=== PATIENT | male | born 1955 | race Caucasian/White ===

== ENCOUNTER → 2019-01-20 | Outpatient (CLI) | payer OTHER ==
--- NOTE | 2019-01-21 03:00 | REP ---
Clinical: Ureteral calculus. Technique: Single supine view of the abdomen and pelvis. Findings: No obvious intrarenal calculi are appreciated. There appears to be a somewhat lamellated 18 mm calculus in the pelvis which may reflect bladder stone. Smaller calcifications in the left jay pelvis ranging between 2 and 5 mm are nonspecific and likely represent phleboliths. Bowel gas pattern is nonspecific. No organomegaly. Skeletal structures intact. Impression: No obvious renal calculi appreciated. Calcifications in the pelvis as noted above. Electronically Signed by Edi Espinoza MD 01/21/2019 02:52 A
== END ==
LOC: M SMT 10:13
PROVIDERS: ATTEND Urology
DX: N20.1 Calculus of ureter (principal)

== ENCOUNTER 2019-03-01 07:12 | Day surgery (SDC) | payer OTHER ==
[~2019-03-01] VITALS: Ht 188 cm; Wt 101.7 kg
[~2019-03-01 07:12] MED LIST: ASPI81TA85 PO; CIPR500T3 PO; DUTA1CAP PO; FLUTISP NARES; LR 1,000 ML IV ONE; METO1TAB7 PO; RANI150T14 PO; TAMS1CAP17 PO
[2019-03-01] MEDS ORDERED: CONRAY-60 60% 50ML VIAL (Q9961) As Ordered ONE (07:17)
[2019-03-01] MEDS ORDERED: dexameTHASONE 4 MG/ML 1ML VIAL (J1100) As Ordered ONE (09:38)
[2019-03-01] MEDS ORDERED: ROCURONIUM BROMIDE 50 MG/5 ML VIAL As Ordered ONE (09:38)
[2019-03-01] MEDS ORDERED: fentaNYL 100 MCG/2 ML INJECTION (J3010) As Ordered ONE ×2 (09:38→10:05)
[2019-03-01] MEDS ORDERED: SUGAMMADEX SODIUM 500 MG/5 ML VIAL (BRIDION) As Ordered ONE (09:38)
[2019-03-01] MEDS ORDERED: ONDANSETRON 4MG/2ML VIAL (J2405) As Ordered ONE (09:38)
[2019-03-01] MEDS ORDERED: ePHEDrine SULFATE 25 MG/5 ML(5MG/ML) SYRINGE As Ordered ONE ×2 (09:38→11:00)
[2019-03-01] MEDS ORDERED: METOCLOPRAMIDE INJ 10MG/2ML VIAL (J2765) As Ordered ONE (09:38)
[2019-03-01] MEDS ORDERED: MIDAZOLAM INJ 2 MG/2 ML VIAL (J2250) As Ordered ONE (09:38)
[2019-03-01] MEDS ORDERED: PROPOFOL 200 MG/20 ML VIAL As Ordered ONE (09:38)
[2019-03-01] MEDS ORDERED: LIDOCAINE 2% INJ 100 MG/5 ML SDV (FOR ANES.) As Ordered ONE (09:39)
[2019-03-01] MEDS ORDERED: LIDOCAINE 2% JELLY 6 ML SYRINGE As Ordered ONE (09:48)
[2019-03-01] MEDS ORDERED: ACETAMINOPHEN 1000MG 100ML IV BTL (OFIRMEV) (J0131 PER 10MG) As Ordered ONE (10:05)
--- NOTE | 2019-03-01 11:04 | REP ---
C-ARM VIEWS, ABDOMEN: Two C-arm views of the abdomen performed during placement of left ureteral stent. The left ureter was catheterized and contrast partially opacifies the left pelvocaliceal system. A left ureteral stent is placed with the proximal end coiled in the left renal pelvis and the distal end in the urinary bladder. Fluoroscopy time 0.09 minutes. Electronically Signed by Lexa Perea MD 03/01/2019 04:10 P
[2019-03-01] MEDS ORDERED: DESFLURANE 240 ML INHALANT As Ordered ONE (11:05)
[2019-03-01] MEDS ORDERED: KETOROLAC 60 MG/2 ML VIAL (J1885) As Ordered ONE (11:20)
[2019-03-01] MEDS ORDERED: PERCOCET 5MG/325MG TAB PO PRN (12:00)
[2019-03-01] MEDS ORDERED: fentaNYL 100 MCG/2 ML INJECTION (J3010) IV PRN (12:00)
[2019-03-01] MEDS ORDERED: ONDANSETRON 4MG/2ML VIAL (J2405) IV PRN (12:00)
[2019-03-01] MEDS ORDERED: LR 1,000 ML IV SCH (12:15)
[2019-03-01 12:55] VITALS: BP 136/81
[2019-03-01] MEDS ORDERED: ACETAMINOPHEN TAB 650MG DOSE (2X325MG) PO PRN (13:01)
--- NOTE | 2019-03-02 09:32 | RO ---
DATE OF PROCEDURE: 03/01/2019 PREPROCEDURE DIAGNOSIS: Left ureteral stone, bladder stone. POSTPROCEDURE DIAGNOSIS: Left ureteral stone, bladder stone. PROCEDURE: Cystoscopy, left ureteroscopy with laser lithotripsy with basket extraction of stones, left retrograde pyelogram with intraoperative interpretation of images, left ureteral stent placement, laser cystolitholapaxy. SURGEON: Dr. Atif Andrade DRAPERY EXAMINER: None. ANESTHESIA: General. OPERATIVE INDICATIONS: This is 63-year-old male was found to have an obstructing 8 mm left ureteral stone, as well as an approximately 4 to 5 cm bladder stone. He was brought to the operating room today for the above listed procedure. DESCRIPTION OF PROCEDURE: The patient was brought to the operating room, where general anesthesia was induced. Prophylactic antibiotics were infused. He was then placed in the dorsal lithotomy position and prepped and draped in the usual sterile fashion. A rigid cystoscope was then inserted into the urethral meatus and advanced into the bladder. Of note, the patient had trilobar benign prostatic hyperplasia with a very large median lobe. Once inside the bladder, the large bladder stone was seen. I then advanced a guidewire up the left collecting system. I went into the left collecting system with a short semirigid ureteroscope and within the distal ureter the 8 mm stone was seen. The stone was fragmented into smaller pieces using a 272 micron laser fiber. All the fragments were then removed using a basket. I then went up the ureter and into the kidney with a flexible ureteroscope and examined the kidney thoroughly. Of note, no stones were seen inside the kidney or proximal ureter. A retrograde pyelogram was performed and was notable for moderate left hydronephrosis with no extravasation. I then withdrew the ureteroscope and once again no stones were seen inside the ureter. I then utilized the guidewire to advance a #6-[place] x 22-32 cm JJ ureteral stent up the left collecting system. The wire was then removed, and there were adequate curls of the stent in the left renal pelvis and in the bladder. Once that was done, I then utilized a 550 micron laser fiber to fragment the bladder stone into smaller pieces. Once the stone was completely fragmented, I used an Brass Monkey evacuator to evacuate all the fragments from the bladder. Once satisfied the bladder stones had been completely evacuated, the bladder was emptied of all fluids and this marked conclusion of the procedure. The patient was then taken out of the dorsal lithotomy position, awakened from anesthesia, and transported to the recovery room in stable condition. ESTIMATED BLOOD LOSS: 10 mL. COMPLICATIONS: None. SPECIMENS: Left ureteral stone fragments, bladder stone fragments. PLAN: The patient will followup in the clinic in a few weeks for stent removal. Also, of note, I suspect that he incompletely empties his bladder, which is likely the cause of the bladder stone formation. We will evaluate him for this and I suspect that he will be a candidate to have a button transurethral electrovaporization of the prostate done in the near future. JOSE RAMON
[2019-03-05 00:06] LABS: COMMENT Comment: (.); COMMENT Note: (.); Ca Ox Monohydrate 15 % (.); Uric Acid 80 % (.)
== END 2019-03-01 13:00 | disposition home or self-care (01) ==
LOC: M SDC 07:12
PROVIDERS: ATTEND Urology
DX: N20.1 Calculus of ureter (principal); N21.0 Calculus in bladder; I10 Essential (primary) hypertension; K21.9 Gastro-esophageal reflux disease without esophagitis; Z79.899 Other long term (current) drug therapy; Z79.82 Long term (current) use of aspirin; N40.0 Benign prostatic hyperplasia without lower urinary tract symptoms
CPT/HCPCS: 52318; 52356; 74420; 82360; 88300; C1769; C1894; C2617; J0131; J0690; J1100; J1885; J2250; J2405; J2765; J3010; Q9961

== ENCOUNTER 2020-01-31 13:35 | Day surgery (SDC) | payer OTHER ==
[~2020-01-31 13:35] MED LIST changes: -ASPI81TA85 PO; +ASPI81TA86 PO; -DUTA1CAP PO; +DUTA1CAP2 PO; -LR 1,000 ML IV ONE; +ceFAZolin 2 GM/D5W 50 ML IV BAG (J0690 PER 500MG) As Ordered ONE; +ceFAZolin 2 GM/D5W 50 ML IV BAG (J0690 PER 500MG) ONE
[2020-01-31] MEDS ORDERED: MIDAZOLAM INJ 2MG/2ML VIAL (J2250 PER 1MG) As Ordered ONE (17:03)
[2020-01-31] MEDS ORDERED: propofoL 200 MG/20 ML VIAL As Ordered ONE (17:03)
[2020-01-31] MEDS ORDERED: ONDANSETRON 4MG/2ML VIAL As Ordered ONE (17:03)
[2020-01-31] MEDS ORDERED: dexameTHASONE 4 MG/ML 1ML VIAL (J1100 PER 1MG) As Ordered ONE (17:03)
[2020-01-31] MEDS ORDERED: LIDOCAINE 2% 100MG/5ML SDV (FOR ANES.) As Ordered ONE (17:03)
[2020-01-31] MEDS ORDERED: fentaNYL 100 MCG/2 ML INJECTION (J3010) As Ordered ONE (17:03)
[2020-01-31] MEDS ORDERED: PHENYLephrine HCL 500 MCG/5 ML (100MCG/ML) SYRINGE (J2370) As Ordered ONE (17:57)
[2020-03-08 15:11] LABS: Amm Acid Urate 40 % (.); CA Oxalate Dihy 60 % (.); Size 5x6 mm (.)
--- NOTE | 2020-03-24 06:52 | RO ---
DATE OF OPERATION: 01/31/2020 PREOPERATIVE DIAGNOSIS: Bladder calculi. POSTOPERATIVE DIAGNOSES: Bladder calculi. Large prostate median lobe. Bladder diverticulum. PROCEDURES: Cystoscopy Laser litholapaxy bladder calculi. SURGEON: Dr. Tanner Peck. ANESTHESIA: MAC. INDICATIONS FOR OPERATION: This is a 64-year-old white male who was found in the office on surveillance cystoscopy to have bladder calculi. He was therefore, brought to the operating room for a laser litholapaxy. DESCRIPTION OF OPERATION: The patient was placed on the table in the supine position and given MAC anesthesia. He was then placed in the lithotomy position, prepped with Betadine paint, draped in an aseptic manner, and timeout was performed. A 22-German cystoscope was then inserted into the meatus and advanced under direct vision of a 30 lens to the bladder. The bladder was then filled and the stones were identified. They were broken up into small fragments with the laser lithotriptor. These fragments were then irrigated out of the bladder and sent to pathology for examination. The bladder was then drained. Cystoscope was removed. The patient was awakened from anesthesia and sent to the recovery room in stable condition, having tolerated the procedure well. JOSE RAMON
== END 2020-01-31 19:56 | disposition home or self-care (01) ==
LOC: M SDC 13:35
PROVIDERS: ATTEND Urology
DX: N21.0 Calculus in bladder (principal); I10 Essential (primary) hypertension; Z79.82 Long term (current) use of aspirin; Z79.899 Other long term (current) drug therapy
CPT/HCPCS: 52317; 82365; 88300; J0690; J1100; J2250; J2370; J2405; J3010